=== PATIENT | female | born 1995 | race Caucasian/White ===

== ENCOUNTER → 2018-04-10 | Outpatient (CLI) | payer OTHER ==
[~2018-04-10] MED LIST: ONDA4TAB97 PO; TRAM-420 PO; [UNRECOGNIZED DRUG - CODE] PO; birth control PO
== END ==
LOC: LAB 11:33
PROVIDERS: ATTEND Surgery
DX: D22.5 Melanocytic nevi of trunk (principal); L72.11 Pilar cyst
CPT/HCPCS: 88305